=== PATIENT | female | born 1960 | race Caucasian/White ===

== ENCOUNTER 2017-09-18 10:18 | Inpatient (IN) | payer OTHER ==
[~2017-09-18] VITALS: Ht 157.5 cm; Wt 69.7 kg
[~2017-09-18 10:18] MED LIST: ALBUTEROL INHALER IH; Advair HFA 115/21 IH; BP PILL PO; CLEOCIN300 MG PO; DUONEB3 ML IH; HABITROL,NICODE21 MG TD; METHADONE1 MG/1 ML PO; METHADONE10 MG PO; MOTRIN800 MG PO; Methadone PO; NORCO 5/3251 TABLET PO; THEO-DUR,THEOC200 MG PO; ZITHROMAX250 MG PO; vit d PO
[2017-09-18 11:24] LABS: INFLUENZA A VIRAL ANTIGEN NEGATIVE; INFLUENZA B VIRAL ANTIGEN NEGATIVE
[2017-09-18 11:27] LABS: BASE EXCESS 0 mEq/L (-3 to +3); BICARBONATE 25.4 mEq/L (22-26); CARBOXY HGB 3.1 % (0-5); COMMENTS - BLOOD GASES C+; DEVICE ROOM AIR; METHEMOGLOBIN 1.3 % (0-1.5); PCO2 43 mm Hg (35-45); PO2 52 mm Hg (80-100); SITE RB; pH 7.38 (7.35-7.45)
[2017-09-18 11:28] LABS: FI02 21 %; TOTAL RESP RATE 16 resp/min
[2017-09-18 11:40] LABS: BASOPHIL COUNT 0.1 K/uL (0-0.1); EOSINOPHIL (%) 0.4 % (0-5); EOSINOPHIL COUNT 0.1 K/uL (0-0.3); HEMATOCRIT 45.6 % (36.0-46.0); IMMATURE GRANULOCYTE (%) 0.5 % (0.0-0.7); IMMATURE GRANULOCYTE COUNT 0.1 K/uL; LYMPHOCYTE COUNT 1.4 K/uL (1.0-2.8); MCH 29.4 PG (29.0-34.0); MCHC 32.9 G/DL (30.0-36.0); MCV 89.4 FL (83-99); MEAN PLAT.VOLUME 8.9 uM^3 (9.5-12.4); MONOCYTE (%) 5.9 % (3-12); MONOCYTE COUNT 1.2 K/uL (0-0.8); NEUTROPHIL (%) 86.4 % (45-76); PLATELET COUNT 263 K/uL (156-360); RBC DIS.WIDTH-CV 13.9 % (11.8-14.6); WHITE BLOOD COUNT 20.8 K/uL (4.1-10.2)
[2017-09-18 11:52] LABS: CHLORIDE 108 mEq/L (99-109); POTASSIUM 3.8 mEq/L (3.7-5.4); SODIUM 140 mEq/L (136-147)
[2017-09-18 11:55] LABS: GLUCOSE 101 mg/dL (70-99)
[2017-09-18 11:55] LABS: ADD MIUA? YES; BILIRUBIN NEGATIVE; BLOOD MODERATE; COLOR YELLOW ((YELLOW)); GLUCOSE (STRIP) NEGATIVE; KETONES NEGATIVE; LEUKOCYTES TRACE; NITRITE NEGATIVE; PROTEIN (STRIP) 100; SPECIFIC GRAVITY 1.017 (1.000-1.030); UROBILINOGEN 0.2 MG/DL (0.2-1.0)
[2017-09-18 11:56] LABS: ANION GAP 10 MEQ/L (2-14); TOTAL BILIRUBIN 0.5 mg/dL (0.0-1.0)
[2017-09-18 11:57] LABS: SERUM ETHYL ALCOHOL < 10 mg/dL
[2017-09-18 11:57] LABS: BACTERIA NONE SEEN /HPF; EPITHELIAL CELLS RARE /HPF; HYALINE CASTS 0-5 /LPF; MUCUS TRACE /LPF; UCUL ADDED? NO; WHITE BLOOD CELLS 0-5 /HPF (0-5)
[2017-09-18 11:58] LABS: GFR ESTIMATE (CALCULATED) > 59 mL/min/
[2017-09-18 11:59] LABS: ALKALINE PHOSPHATASE 72 IU/L (3-129)
[2017-09-18 12:00] LABS: UREA NITROGEN (BUN) 24 mg/dL (9-23)
[2017-09-18 12:02] LABS: SALICYLATE < 5.0 MG/DL (15-30)
[2017-09-18 12:23] LABS: AMPHETAMINE NEGATIVE (500 ng/mL); BARBITURATES NEGATIVE (200 ng/mL); BENZODIAZEPINES NEGATIVE (150 ng/mL); COCAINE NEGATIVE (150 ng/mL); INTERNAL CONTROLS VALID? YES; METHADONE PRESUMPTIVE POSITIVE (200 ng/mL); METHAMPHETAMINE NEGATIVE (500 ng/mL); OPIATES (MORPHINE) NEGATIVE (100 ng/mL); OXYCODONE PRESUMPTIVE POSITIVE (100 ng/mL); PHENCYCLIDINE NEGATIVE (25 ng/mL); PROPOXYPHENE NEGATIVE (300 ng/mL); THC CANNABINOIDS PRESUMPTIVE POSITIVE (50 ng/mL); TRICYCLIC ANTIDEPRESSANTS NEGATIVE (300 ng/mL)
[2017-09-18 12:24] LABS: ADD MEDTOX COMMENT Y
[2017-09-18 13:01] LABS: INTER. NORMALIZED RATIO 1.1; PROTHROMBIN TIME 12.6 SEC (10.2-12.9)
[2017-09-18 13:04] LABS: PTT 28.1 SEC (25-37)
[2017-09-18 13:27] LABS: TROP-I INTERPRETATION NEGATIVE; TROPONIN-I < 0.01 ng/mL (0.0-0.30)
[2017-09-18] MEDS ORDERED: VENTOLIN HFA18 GM IH (16:18)
[2017-09-18] MEDS ORDERED: ADVIL200 MG PO (16:18)
[2017-09-18 17:43] VITALS: BP 155/75
[2017-09-18 18:36] LABS: TROP-I INTERPRETATION NEGATIVE; TROPONIN-I 0.02 ng/mL (0.0-0.30)
[2017-09-18 20:08] VITALS: BP 136/67
[2017-09-18 23:59] VITALS: BP 122/61
[2017-09-19 01:12] LABS: TROP-I INTERPRETATION NEGATIVE; TROPONIN-I < 0.01 ng/mL (0.0-0.30)
[2017-09-19 05:51] VITALS: BP 131/70
[2017-09-19 06:42] LABS: ANION GAP 10 MEQ/L (2-14); CHLORIDE 104 MEQ/L (99-109); GFR ESTIMATE (CALCULATED) > 59 mL/min/; GLUCOSE 125 mg/dL (70-99); SAMPLE HEMOLYSIS CHECK 0; SAMPLE ICTERIC CHECK 0; SAMPLE LIPEMIA CHECK 0; SODIUM 138 MEQ/L (136-147); UREA NITROGEN (BUN) 18 mg/dL (9-23)
[2017-09-19 06:49] LABS: HEMATOCRIT 36.3 % (36.0-46.0); MCH 29.7 PG (29.0-34.0); MCHC 32.8 G/DL (30.0-36.0); MCV 90.5 FL (83-99); MEAN PLAT.VOLUME 9.7 uM^3 (9.5-12.4); PLATELET COUNT 229 K/uL (156-360); RBC DIS.WIDTH-CV 14.4 % (11.8-14.6); RBC DIS.WIDTH-SD 47.7 % (39-53); WHITE BLOOD COUNT 19.3 K/uL (4.1-10.2)
[2017-09-19 06:50] VITALS: BP 156/74
[2017-09-19 07:14] LABS: RED BLOOD COUNT 4.01 M/uL (3.80-5.20)
[2017-09-19 11:08] VITALS: BP 127/63
[2017-09-19 15:00] VITALS: BP 137/64
[2017-09-19 19:56] VITALS: BP 150/73
[2017-09-19 23:44] VITALS: BP 138/71
[2017-09-20 03:59] VITALS: BP 132/73
[2017-09-20 05:55] LABS: EOSINOPHIL (%) 0 % (0-5); HEMATOCRIT 36.7 % (36.0-46.0); IMMATURE GRANULOCYTE (%) 1.5 % (0.0-0.7); IMMATURE GRANULOCYTE COUNT 0.3 K/uL; INSTRUMENT ABS NEUTROPHIL CT 19.1 K/uL; LYMPHOCYTE COUNT 1.4 K/uL (1.0-2.8); MCH 29.7 PG (29.0-34.0); MCHC 32.4 G/DL (30.0-36.0); MCV 91.5 FL (83-99); MEAN PLAT.VOLUME 9.8 uM^3 (9.5-12.4); MONOCYTE (%) 3.3 % (3-12); MONOCYTE COUNT 0.7 K/uL (0-0.8); NEUTROPHIL (%) 88.6 % (45-76); NEUTROPHIL COUNT 19.1 K/uL (1.8-6.4); PLATELET COUNT 235 K/uL (156-360); RBC DIS.WIDTH-CV 14.7 % (11.8-14.6); RBC DIS.WIDTH-SD 49.7 % (39-53); RED BLOOD COUNT 4.01 M/uL (3.80-5.20); WHITE BLOOD COUNT 21.5 K/uL (4.1-10.2)
[2017-09-20 06:55] VITALS: BP 126/71
[2017-09-20 06:55] LABS: ALKALINE PHOSPHATASE 54 IU/L (3-129); ANION GAP 11 MEQ/L (2-14); CHLORIDE 107 MEQ/L (99-109); GFR ESTIMATE (CALCULATED) > 59 mL/min/; GLUCOSE 127 mg/dL (70-99); SAMPLE HEMOLYSIS CHECK 0; SAMPLE ICTERIC CHECK 0; SAMPLE LIPEMIA CHECK 0; SODIUM 140 MEQ/L (136-147); TOTAL BILIRUBIN 0.2 MG/DL (0.0-1.0); UREA NITROGEN (BUN) 18 mg/dL (9-23)
[2017-09-20] MEDS ORDERED: ZITHROMAX500 MG PO (10:41)
[2017-09-20] MEDS ORDERED: PULMICORT FLEX90 MCG IH (10:41)
[2017-09-20] MEDS ORDERED: NICOTINE PATCH1 EAC2 TD (10:41)
[2017-09-20] MEDS ORDERED: CEFTIN500 MG PO (10:41)
[2017-09-20] MEDS ORDERED: PREDNISONE10 MG PO (10:41)
[2017-09-20] MEDS ORDERED: SPIRIVA1 INHALATI IH (10:41)
[2017-09-20] MEDS ORDERED: ASPIRIN325 MG PO (10:44)
== END 2017-09-20 13:50 | disposition home or self-care (01) | DRG 871 ==
LOC: EME → EDBD 10:18 → EME 10:18 → EDOF 12:59 → ENRESERV 13:00 → CANRESERV 13:09 → ENRESERV 13:30 → EDOF 13:40 → 5EAST 17:17 → ENPENDDIS 09-20 → 5EAST 09-20 13:50
PROVIDERS: Hospitalist; Internal Medicine; Physician Assistant
DX: A41.9 Sepsis, unspecified organism (principal); J44.0 Chronic obstructive pulmonary disease with (acute) lower respiratory infection; J18.9 Pneumonia, unspecified organism; J44.1 Chronic obstructive pulmonary disease with (acute) exacerbation; F11.20 Opioid dependence, uncomplicated; I10 Essential (primary) hypertension; F12.90 Cannabis use, unspecified, uncomplicated; F17.200 Nicotine dependence, unspecified, uncomplicated; I70.202 Unspecified atherosclerosis of native arteries of extremities, left leg; N39.0 Urinary tract infection, site not specified; F32.9 Major depressive disorder, single episode, unspecified; F41.9 Anxiety disorder, unspecified; G43.909 Migraine, unspecified, not intractable, without status migrainosus; G89.29 Other chronic pain; M25.559 Pain in unspecified hip; R94.31 Abnormal electrocardiogram [ECG] [EKG]
CPT/HCPCS: 36600; 71020; 71250; 80048; 80053; 81003; 82803; 83605; 83690; 84484; 84999; 85025; 85027; 85610; 85730; 87040; 87070; 87086; 87205; 87502; 93005; 93970; 94640; 94640 76; 94760; 94799; 99202; 99281; 99285; G0480; J0456; J0696; J1650; J2920; J7030; J7050; J7120

== ENCOUNTER 2018-02-22 11:26 | Emergency (ER) | payer OTHER ==
[~2018-02-22] VITALS: Ht 154.9 cm; Wt 63.6 kg
[~2018-02-22 11:26] MED LIST changes: +ADVIL200 MG PO; +ASPIRIN325 MG PO; +CEFTIN500 MG PO; +NICOTINE PATCH1 EAC2 TD; +PREDNISONE10 MG PO; +PULMICORT FLEX90 MCG IH; +SPIRIVA1 INHALATI IH; +VENTOLIN HFA18 GM IH; +ZITHROMAX500 MG PO
[2018-02-22 12:23] LABS: HEMATOCRIT 40.7 % (36.0-46.0); HEMOGLOBIN 13.8 G/DL (11.9-15.5); MCH 29.9 PG (29.0-34.0); MCHC 33.9 G/DL (30.0-36.0); MCV 88.1 FL (83-99); PLATELET COUNT 230 K/uL (156-360); RBC DIS.WIDTH-CV 14.4 % (11.8-14.6); RBC DIS.WIDTH-SD 46.3 % (39-53); RED BLOOD COUNT 4.62 M/uL (3.80-5.20); WHITE BLOOD COUNT 23.9 K/uL (4.1-10.2)
[2018-02-22 12:32] LABS: CHLORIDE 99 mEq/L (99-109); POTASSIUM 4.1 mEq/L (3.7-5.4); SODIUM 138 mEq/L (136-147)
[2018-02-22 12:33] LABS: GLUCOSE 105 mg/dL (70-99)
[2018-02-22 12:37] LABS: CREATININE 0.9 mg/dL (0.6-1.3); GFR ESTIMATE (CALCULATED) > 59 mL/min/
[2018-02-22 12:38] LABS: UREA NITROGEN (BUN) 13 mg/dL (9-23)
[2018-02-22 12:46] LABS: ALBUMIN 3.8 g/dL (3.2-4.8)
[2018-02-22 12:49] LABS: TOTAL PROTEIN 6.9 g/dL (6.4-8.3)
[2018-02-22 12:51] LABS: TOTAL BILIRUBIN 0.4 mg/dL (0.0-1.0)
[2018-02-22 12:52] LABS: ALKALINE PHOSPHATASE 71 IU/L (3-129)
[2018-02-22 12:54] LABS: AST (GOT) 25 IU/L (2-34)
[2018-02-22 12:55] LABS: ALT (GPT) 25 IU/L (3-49)
[2018-02-22 13:03] LABS: CARBON DIOXIDE (BICARBONATE) 32.2 MEQ/L (20-31)
[2018-02-22] MEDS ORDERED: LEVAQUIN750 MG PO (14:49)
[2018-02-22 15:04] VITALS: BP 110/85
== END 2018-02-22 15:05 | disposition left against medical advice (07) ==
LOC: EME 11:26
PROVIDERS: Nurse Practitioner Family
DX: J44.1 Chronic obstructive pulmonary disease with (acute) exacerbation (principal); J44.0 Chronic obstructive pulmonary disease with (acute) lower respiratory infection; J18.9 Pneumonia, unspecified organism; A41.9 Sepsis, unspecified organism; M25.559 Pain in unspecified hip; G89.29 Other chronic pain; F17.200 Nicotine dependence, unspecified, uncomplicated; Z79.891 Long term (current) use of opiate analgesic; Z88.5 Allergy status to narcotic agent; Z88.8 Allergy status to other drugs, medicaments and biological substances
CPT/HCPCS: 71046; 80048; 80053; 82140; 82803; 83605; 85027; 87040; 94640; 99281; 99285; J2930

== ENCOUNTER → 2018-04-23 | Outpatient (CLI) | payer OTHER ==
[~2018-04-23] MED LIST changes: +AMLODIPINE BESY10 MG PO; +AUGMENTIN875 MG PO; +DELTASONE20 M1 PO; +DUONEB 2.5-0.5 M3 ML AEROSOL; +INCRUSE ELLI62.5 MCG IH; +LEVAQUIN750 MG PO; +MOBIC15 MG PO; +SPIRIVA18 MCG IH; +VITAMIN D5000 UNI1 PO; +ZOFRAN4 MG PO
== END | disposition home or self-care (01) ==
LOC: RES 08:00
DX: Z02.71 Encounter for disability determination (principal)
CPT/HCPCS: 94060; 94729; 94760

== ENCOUNTER 2018-04-24 07:28 | Inpatient (IN) | payer OTHER ==
[~2018-04-24] VITALS: Ht 154.9 cm; Wt 66.7 kg
[~2018-04-24 07:28] MED LIST changes: -AMLODIPINE BESY10 MG PO; -AUGMENTIN875 MG PO; -DELTASONE20 M1 PO; -DUONEB 2.5-0.5 M3 ML AEROSOL; -INCRUSE ELLI62.5 MCG IH; -MOBIC15 MG PO; -SPIRIVA18 MCG IH; -VITAMIN D5000 UNI1 PO; -ZOFRAN4 MG PO
[2018-04-24 08:33] LABS: HEMATOCRIT 42.3 % (36.0-46.0); MCHC 33.1 G/DL (30.0-36.0); MCV 90.8 FL (83-99); PLATELET COUNT 234 K/uL (156-360); RBC DIS.WIDTH-SD 46.6 % (39-53); RED BLOOD COUNT 4.66 M/uL (3.80-5.20); WHITE BLOOD COUNT 20.6 K/uL (4.1-10.2)
[2018-04-24 09:11] LABS: ALKALINE PHOSPHATASE 66 IU/L (3-129); ALT (GPT) 16 IU/L (3-49); AST (GOT) 16 IU/L (2-34); CHLORIDE 100 MEQ/L (99-109); CREATININE 0.7 MG/DL (0.6-1.3); GFR ESTIMATE (CALCULATED) > 59 mL/min/; GLUCOSE 127 mg/dL (70-99); LIPASE 29 U/L (1.0-51.0); POTASSIUM 4.1 MEQ/L (3.7-5.4); SODIUM 137 MEQ/L (136-147); TOTAL BILIRUBIN 0.4 MG/DL (0.0-1.0); TOTAL PROTEIN 7.3 G/DL (6.4-8.3); UREA NITROGEN (BUN) 19 mg/dL (9-23)
[2018-04-24 11:25] LABS: APPEARANCE CLEAR ((CLEAR)); BILIRUBIN NEGATIVE; BLOOD MODERATE; COLOR STRAW ((YELLOW)); GLUCOSE (STRIP) NEGATIVE; KETONES NEGATIVE; LEUKOCYTES NEGATIVE; NITRITE NEGATIVE; PROTEIN (STRIP) 100; UROBILINOGEN 0.2 MG/DL (0.2-1.0)
[2018-04-24 11:32] LABS: BACTERIA NONE SEEN /HPF; EPITHELIAL CELLS RARE /HPF; HYALINE CASTS 0-5 /LPF; MUCUS TRACE /LPF; RED BLOOD CELLS 0-5 /HPF (0-5); UCUL ADDED? NO; WHITE BLOOD CELLS 0-5 /HPF (0-5)
[2018-04-24] MEDS ORDERED: ZOFRAN4 MG PO (12:36)
[2018-04-24] MEDS ORDERED: MOBIC15 MG PO (14:39)
[2018-04-24] MEDS ORDERED: SPIRIVA18 MCG IH (14:40)
[2018-04-24] MEDS ORDERED: VENTOLIN HFA18 GM IH (14:42)
[2018-04-24] MEDS ORDERED: VITAMIN D5000 UNI1 PO ×2 (14:43)
[2018-04-24] MEDS ORDERED: ASPIRIN325 MG PO (14:49)
[2018-04-24 14:53] LABS: AMPHETAMINE NEGATIVE (500 ng/mL); BARBITURATES NEGATIVE (200 ng/mL); BENZODIAZEPINES NEGATIVE (150 ng/mL); BUPRENORPHINE NEGATIVE (10 ng/mL); COCAINE NEGATIVE (150 ng/mL); METHADONE PRESUMPTIVE POSITIVE (200 ng/mL); METHAMPHETAMINE NEGATIVE (500 ng/mL); OPIATES (MORPHINE) NEGATIVE (100 ng/mL); OXYCODONE NEGATIVE (100 ng/mL); PHENCYCLIDINE NEGATIVE (25 ng/mL); PROPOXYPHENE NEGATIVE (300 ng/mL); THC CANNABINOIDS NEGATIVE (50 ng/mL); TRICYCLIC ANTIDEPRESSANTS NEGATIVE (300 ng/mL)
[2018-04-24 23:44] VITALS: BP 143/71
[2018-04-25 03:35] VITALS: BP 126/77
[2018-04-25 06:30] LABS: HEMATOCRIT 39.7 % (36.0-46.0); HEMOGLOBIN 12.5 G/DL (11.9-15.5); MCH 28.9 PG (29.0-34.0); MCHC 31.5 G/DL (30.0-36.0); MCV 91.7 FL (83-99); PLATELET COUNT 211 K/uL (156-360); RBC DIS.WIDTH-CV 13.6 % (11.8-14.6); RBC DIS.WIDTH-SD 46.7 % (39-53); RED BLOOD COUNT 4.33 M/uL (3.80-5.20); WHITE BLOOD COUNT 9.2 K/uL (4.1-10.2)
[2018-04-25 06:58] LABS: CHLORIDE 99 MEQ/L (99-109); CREATININE 0.7 MG/DL (0.6-1.3); GFR ESTIMATE (CALCULATED) > 59 mL/min/; GLUCOSE 118 mg/dL (70-99); POTASSIUM 4.9 MEQ/L (3.7-5.4); SODIUM 141 MEQ/L (136-147); UREA NITROGEN (BUN) 16 mg/dL (9-23)
[2018-04-25 07:48] VITALS: BP 169/77
[2018-04-25 11:48] VITALS: BP 178/85
[2018-04-25 15:39] VITALS: BP 186/92
[2018-04-25 20:18] VITALS: BP 187/82
[2018-04-26 02:14] VITALS: BP 178/80
[2018-04-26 04:59] VITALS: BP 176/82
[2018-04-26 07:16] VITALS: BP 176/86
[2018-04-26 07:45] VITALS: BP 170/88
[2018-04-26] MEDS ORDERED: AMLODIPINE BESY10 MG PO (10:44)
[2018-04-26] MEDS ORDERED: DUONEB 2.5-0.5 M3 ML AEROSOL (10:44)
[2018-04-26] MEDS ORDERED: DELTASONE20 M1 PO (10:46)
[2018-04-26] MEDS ORDERED: AUGMENTIN875 MG PO (10:47)
[2018-04-26] MEDS ORDERED: INCRUSE ELLI62.5 MCG IH (10:48)
== END 2018-04-26 13:48 | disposition home or self-care (01) | DRG 191 ==
LOC: EME 07:28 → EDOF 17:44 → ENRESERV 17:54 → 3EAST 18:53 → EDOF 18:53 → ENRESERV 18:57 → 3EAST 20:31
PROVIDERS: Hospitalist; Nurse Practitioner Family
DX: J44.1 Chronic obstructive pulmonary disease with (acute) exacerbation (principal); F11.20 Opioid dependence, uncomplicated; R11.2 Nausea with vomiting, unspecified; F17.200 Nicotine dependence, unspecified, uncomplicated; I10 Essential (primary) hypertension; Z79.82 Long term (current) use of aspirin; R09.02 Hypoxemia; M25.559 Pain in unspecified hip; G89.29 Other chronic pain; R41.82 Altered mental status, unspecified; T40.3X1A Poisoning by methadone, accidental (unintentional), initial encounter; D72.829 Elevated white blood cell count, unspecified
CPT/HCPCS: 70450; 71046; 80048; 80053; 81003; 82948; 83690; 84145 90; 85027; 87040; 94640; 94640 76; 94799; 99202; 99281; 99285; J1644; J1956; J2310; J2405; J2920; J7030; J7040; J7120; S0028